=== PATIENT | female | born 1975 | race Hispanic/Latino ===

== ENCOUNTER 2018-01-15 19:38 | Emergency (ER) | payer BC ==
[2018-01-15] MEDS ORDERED: OSELTAMIVIR 75 MG CAP ONE (20:48)
[2018-01-15] MEDS ORDERED: DEXAMETHASONE 4 MG TAB ONE (20:49)
[2018-01-15] MEDS ORDERED: ACETAMINOPHEN 500 MG TAB ONE ×2 (20:49→20:53)
[2018-01-15] MEDS ORDERED: ALBUTEROL 2.5 MG/3 ML NEB SOL ONE (20:49)
--- NOTE | 2018-01-15 20:55 | EDPHYS ---
Physician Documentation [facility] Name: Brian Goldstein Age: 42 yrs Sex: Female : 1975 Arrival Date: 01/15/2018 Time: 19:40 Bed 19 Private MD: ED Physician Sabino Bills HPI: 01/15 20:53 This 42 yrs old Female presents to ER via Ambulatory with complaints of Cough, snw Fever, BODY ACHE. 20:53 The patient or guardian reports cough, flu symptoms, arthralgias, low-grade fever, snw myalgias, no appetite. Onset: The symptoms/episode began/occurred suddenly, last night. Severity of symptoms: At their worst the symptoms were moderate, severe. The patient has not experienced similar symptoms in the past. The patient has not recently seen a physician. visiting from [place]. 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 - Social history:: Smoking status: Patient/guardian denies using tobacco, Patient uses alcohol, occasionally. Patient/guardian denies using street drugs. ROS: 20:52 Eyes: Negative for injury, pain, redness, and discharge. snw 20:52 Neck: Negative for injury, pain, and swelling. 20:52 Cardiovascular: Negative for chest pain, palpitations, and edema. 20:52 Abdomen/GI: Negative for abdominal pain, nausea, vomiting, diarrhea, and constipation, Back: Negative for injury and pain, : Negative for injury, bleeding, discharge, and swelling, MS/Extremity: Negative for injury and deformity, Skin: Negative for injury, rash, and discoloration, Neuro: Negative for headache, weakness, numbness, tingling, and seizure. 20:52 Constitutional: Positive for body aches, chills, fatigue, fever, malaise, poor PO intake. 20:52 ENT: Positive for nasal discharge. 20:52 Respiratory: Positive for cough. Exam: 20:43 Head/Face: Normocephalic, atraumatic. Eyes: Pupils equal round and reactive to light, snw extra-ocular motions intact. Lids and lashes normal. Conjunctiva and sclera are non-icteric and not injected. Cornea within normal limits. Periorbital areas with no swelling, redness, or edema. 20:43 Neck: Trachea midline, no thyromegaly or masses palpated, and no cervical lymphadenopathy. Supple, full range of motion without nuchal rigidity, or vertebral point tenderness. No Meningismus. Chest/axilla: Normal chest wall appearance and motion. Nontender with no deformity. No lesions are appreciated. Respiratory: Lungs have equal breath sounds bilaterally, clear to auscultation and percussion. No rales, rhonchi or wheezes noted. No increased work of breathing, no retractions or nasal flaring. Abdomen/GI: Soft, non-tender, with normal bowel sounds. No distension or tympany. No guarding or rebound. No evidence of tenderness throughout. Back: No spinal tenderness. No costovertebral tenderness. Full range of motion. Skin: Warm, dry with normal turgor. Normal color with no rashes, no lesions, and no evidence of cellulitis. MS/ Extremity: Pulses equal, no cyanosis. Neurovascular intact. Full, normal range of motion. Neuro: Awake and alert, GCS 15, oriented to person, place, time, and situation. Cranial nerves II-XII grossly intact. Motor strength 5/5 in all extremities. Sensory grossly intact. Cerebellar exam normal. Normal gait. Psych: Awake, alert, with orientation to person, place and time. Behavior, mood, and affect are within normal limits. 20:43 Constitutional: The patient appears alert, obviously ill, uncomfortable. 20:43 ENT: TM's: dullness, Nose: nasal drainage, that is clear. 20:43 Cardiovascular: Rate: tachycardic, Rhythm: regular, Pulses: no pulse deficits are appreciated, Heart sounds: normal, Edema: is not appreciated. Vital Signs: 19:48 BP 131 / 121; Pulse 99; Resp 16; Temp 99.3(O); Pulse Ox 97% ; Weight 104.33 kg (R); ao Height 5 ft. 4 in. (162.56 cm) (R); Pain 10/10; 20:32 BP 136 / 85; Pulse 92; Resp 16; Pulse Ox 99% on R/A; mt 20:36 BP 141 / 97; Pulse 102; Resp 16; Pulse Ox 100% on Nebulizer Mask; mt 19:48 Body Mass Index 39.48 (104.33 kg, 162.56 cm) ao MDM: 19:52 Patient medically screened. snw 20:56 Data reviewed: vital signs, nurses notes. Data interpreted: Pulse oximetry: on room air snw is 100 %. Interpretation: normal. Counseling: I had a detailed discussion with the patient and/or guardian regarding: the historical points, exam findings, and any diagnostic results supporting the discharge/admit diagnosis, the presence of at least one elevated blood pressure reading (>120/80) during this emergency department visit, lab results, the need for outpatient follow up, to return to the emergency department if symptoms worsen or persist or if there are any questions or concerns that arise at home. Special discussion: I have referred the patient to see his PCP for further evaluation of high blood pressure. Based on the history and exam findings, there is no indication for further emergent testing or inpatient evaluation. I discussed with the patient/guardian the need to see the primary care provider for further evaluation of the symptoms. 01/15 19:53 Order name: Flu; Complete Time: 20:26 snw 01/15 19:53 Order name: Strep; Complete Time: 20:26 snw 01/15 20:28 Order name: Throat Culture EDMS Administered Medications: 20:40 Drug: Albuterol 2.5 mg Route: Inhalation; aj1 21:04 Follow up: Response: No adverse reaction aj1 20:40 Drug: Decadron 8 mg Route: PO; aj1 21:04 Follow up: Response: No adverse reaction aj1 20:40 Drug: Tylenol 1000 mg Route: PO; aj1 21:05 Follow up: Response: No adverse reaction aj1 20:40 Drug: Tamiflu 75 mg Route: PO; aj1 21:05 Follow up: Response: No adverse reaction aj1 Disposition: 01/16 02:51 Co-signature as Attending Physician, Sabino Bills MD. rn Disposition: 01/15/18 20:54 Discharged to Home. Impression: Influenza due to other identified influenza virus - B. - Condition is Stable. - Discharge Instructions: Hypertension, Influenza, Adult. - Prescriptions for Tamiflu 75 mg Oral Capsule - take 1 capsule by ORAL route every 12 hours for 5 days; 10 capsule. Tylenol- Codeine #3 300-30 mg Oral Tablet - take 2 tablets by ORAL route every 6 hours As needed; 20 tablet. - Medication Reconciliation Form, Thank You Letter, Antibiotic Education, Prescription Opioid Use form. - Follow up: Private Physician; When: 2 - 3 days; Reason: Recheck today's complaints, Continuance of care, Re-evaluation by your physician. Follow up: Emergency Department; When: As needed; Reason: Worsening of condition. Signatures: Dispatcher [employer] EDNesha Marks RN RN aj1 Danielle Hernandez, BACON SKINNER-C BACON SKINNER-Csnw Sabino Bills MD MD rn Liborio Capellan RN RN neo
--- NOTE | 2018-01-15 20:55 | ER ---
Nurse's Notes [facility] Name: Brian Goldstein Age: 42 yrs Sex: Female : 1975 Arrival Date: 01/15/2018 Time: 19:40 Bed 19 Private MD: Diagnosis: Influenza due to other identified influenza virus-B Presentation: 01/15 19:43 Presenting complaint: Patient states: "I been coughing and I also having neck and back ao pain. I also have a sore throat." Patient reports chills and denies nausea and vomiting. Transition of care: patient was not received from another setting of care. Onset of symptoms was January 15, 2018 at 16:00. Care prior to arrival: Medication(s) given: Tylenol, 1000 mg. 19:43 Method Of Arrival: Ambulatory ao 19:43 Acuity: SOFIA 3 ao Triage Assessment: 19:49 General: Appears in no apparent distress. comfortable, Behavior is calm, cooperative, ao appropriate for age. Pain: Complains of pain in neck. 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 - Social history:: Smoking status: Patient/guardian denies using tobacco, Patient uses alcohol, occasionally. Patient/guardian denies using street drugs. Screenin:00 Abuse screen: Denies threats or abuse. Denies injuries from another. Nutritional aj1 screening: No deficits noted. Tuberculosis screening: No symptoms or risk factors identified. 21:02 Fall Risk None identified. aj1 Assessment: 20:00 General: Appears in no apparent distress. uncomfortable, Behavior is calm, cooperative, aj1 appropriate for age, Reports "I was running fever, I dont know the number she (the person the patient is staying with) just gave me Tylenol because I was shaking". Pain: Complains of pain in face, scalp, back and neck Pain does not radiate. Pain currently is 10 out of 10 on a pain scale. Quality of pain is described as pressure Pain began 3 weeks ago. Neuro: Level of Consciousness is awake, alert, obeys commands, Oriented to person, place, time, situation, Speech is normal, Facial symmetry appears normal. Cardiovascular: Heart tones S1 S2 present Patient's skin is warm and dry. Respiratory: Reports shortness of breath cough that is productive, Airway is patent Respiratory effort is even, unlabored, Respiratory pattern is regular, symmetrical, Breath sounds are clear bilaterally. GI: No signs and/or symptoms were reported involving the gastrointestinal system. Patient currently denies diarrhea, nausea, vomiting. : No signs and/or symptoms were reported regarding the genitourinary system. EENT: No signs and/or symptoms were reported regarding the EENT system. Derm: No signs and/or symptoms reported regarding the dermatologic system. Skin is pink, warm \\T\\ dry. normal. Musculoskeletal: No signs and/or symptoms reported regarding the musculoskeletal system. Circulation, motion, and sensation intact. 21:02 Reassessment: Patient appears in no apparent distress at this time. No changes from aj1 previously documented assessment. Patient and/or family updated on plan of care and expected duration. Pain level reassessed. Patient is alert, oriented x 3, equal unlabored respirations, skin warm/dry/pink. Vital Signs: 19:48 BP 131 / 121; Pulse 99; Resp 16; Temp 99.3(O); Pulse Ox 97% ; Weight 104.33 kg (R); ao Height 5 ft. 4 in. (162.56 cm) (R); Pain 10/10; 20:32 BP 136 / 85; Pulse 92; Resp 16; Pulse Ox 99% on R/A; mt 20:36 BP 141 / 97; Pulse 102; Resp 16; Pulse Ox 100% on Nebulizer Mask; mt 19:48 Body Mass Index 39.48 (104.33 kg, 162.56 cm) ao ED Course: 19:40 Patient arrived in ED. es 19:46 Danielle Hernandez FNP-C is [facility]. snw 19:46 Sabino Bills MD is Attending Physician. snw 19:46 Triage completed. ao 19:50 Arm band placed on right wrist. Patient placed in an exam room, on a stretcher, on ao pulse oximetry, Patient notified of wait time. 19:51 Nesha Low RN is Primary Nurse. aj1 20:00 Patient has correct armband on for positive identification. aj1 20:00 No provider procedures requiring assistance completed. aj1 21:03 Patient did not have IV access during this emergency room visit. aj1 Administered Medications: 20:40 Drug: Albuterol 2.5 mg Route: Inhalation; aj1 21:04 Follow up: Response: No adverse reaction aj1 20:40 Drug: Decadron 8 mg Route: PO; aj1 21:04 Follow up: Response: No adverse reaction aj1 20:40 Drug: Tylenol 1000 mg Route: PO; aj1 21:05 Follow up: Response: No adverse reaction aj1 20:40 Drug: Tamiflu 75 mg Route: PO; aj1 21:05 Follow up: Response: No adverse reaction aj1 Outcome: 20:54 Discharge ordered by . kyle : Discharged to home ambulatory. aj1 21:03 Condition: good 21:03 Discharge instructions given to patient, Instructed on discharge instructions, follow up and referral plans. no drinking with medication, no driving heavy equipment, medication usage, Demonstrated understanding of instructions, follow-up care, medications, Prescriptions given X 2. 21:04 Patient left the ED. aj1 Signatures: Nesha Low, RN RN aj1 Danielle Hernandez, CRIMINAL COURT JUDGE-C CRIMINAL COURT JUDGE-Csnw Rain Cosby Alex, RN MILTON [facility]
== END 2018-01-15 21:04 | disposition home or self-care (01) ==
LOC: ER 19:38
DX: J10.1 Influenza due to other identified influenza virus with other respiratory manifestations (principal)
CPT/HCPCS: 87070; 87081; 87804; 99284

== ENCOUNTER 2018-01-17 11:02 | Emergency (ER) | payer BC ==
[2018-01-17 12:28] LABS: Absolute Lymphocytes (CBC) 0.7 K/uL (0.7-4.9); Absolute Monocytes 0.5 K/uL (0.1-1.3); Absolute Neutrophil 2.8 K/uL (1.8-8.0); Basophils % 0.6 % (0-1.3); Eosinophils % 0.1 % (0-4.4); Hematocrit 39.6 % (36.0-45.0); Lymphocytes % 16.7 % (15.3-44.8); MCH 29.6 pg (27.0-35.0); MCV 87.1 fL (80-100); MPV 8.7 fL (7.6-11.3); RBC Red Blood Cell Count 4.55 M/uL (3.86-4.86)
[2018-01-17] MEDS ORDERED: NA CHLORIDE 0.9% 1,000 ML ONE (12:29)
[2018-01-17] MEDS ORDERED: ONDANSETRON 4 MG/2 ML VIAL ONE (12:29)
[2018-01-17] MEDS ORDERED: DICYCLOMINE HCL 10 MG CAP ONE (12:29)
[2018-01-17 12:43] LABS: Potassium 3.2 mEq/L (3.6-5.0)
[2018-01-17 12:49] LABS: Albumin 4.4 g/dL (3.2-5.5); Bilirubin Direct 0.1 mg/dL (0-0.2); Bilirubin Total 0.6 mg/dL (0.3-1.2)
[2018-01-17] MEDS ORDERED: KETOROLAC 30 MG/ML INJ ONE (13:34)
[2018-01-17] MEDS ORDERED: POTASSIUM 25 MEQ EFFERV TAB ONE (13:34)
[2018-01-17 14:19] LABS: Urine Blood 2+ (NEG); Urine Glucose NEGATIVE (NEG); Urine Protein NEGATIVE (NEG); Urine pH 5.5 (5.0-7.0)
--- NOTE | 2018-01-17 14:21 | ER ---
Nurse's Notes [facility] Name: Brian Goldstein Age: 42 yrs Sex: Female : 1975 Arrival Date: 01/17/2018 Time: 11:05 Bed 8 Private MD: Diagnosis: Influenza due to certain identified influenza viruses;Vomiting Presentation: 01/17 11:17 Presenting complaint: Patient states: N/V and diffuse abdominal pain x 2 days. Also c/o hb left upper chest pain since last night. Recently seen in ED, on [place] Day 2 for flu. Transition of care: patient was not received from another setting of care. Onset of symptoms is unknown. Care prior to arrival: None. 11:17 Method Of Arrival: Wheelchair hb 11:17 Acuity: SOFIA 3 hb Triage Assessment: 14:34 General: Appears in no apparent distress. Behavior is calm, cooperative. GI: Reports la1 lower abdominal pain, upper abdominal pain. 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 - Social history:: Smoking status: Patient/guardian denies using tobacco. Screenin:31 Abuse screen: Denies threats or abuse. Nutritional screening: No deficits noted. la1 Tuberculosis screening: No symptoms or risk factors identified. Fall Risk None identified. Assessment: 11:30 General: Appears uncomfortable, Behavior is calm, cooperative. Pain: Complains of pain la1 in chest and abdomen. Neuro: Level of Consciousness is awake, alert, obeys commands, Oriented to person, place, time, situation. Cardiovascular: Capillary refill < 3 seconds Patient's skin is warm and dry. Respiratory: Airway is patent Respiratory effort is even, unlabored, Respiratory pattern is regular, symmetrical, Breath sounds are clear bilaterally. GI: Abdomen is round Bowel sounds present X 4 quads. Abd is soft X 4 quads Abdomen is tender to palpation in right upper quadrant, left upper quadrant, right lower quadrant and left lower quadrant. : No signs and/or symptoms were reported regarding the genitourinary system. Vital Signs: 11:19 BP 119 / 74; Pulse 97; Resp 16; Temp 99.4; Pulse Ox 98% on R/A; Weight 102.51 kg; hb Height 5 ft. 4 in. (162.56 cm); Pain 10/10; 14:18 BP 115 / 64; Pulse 74; Resp 16; Temp 98.3(O); Pulse Ox 99% on R/A; la1 14:33 BP 115 / 61; Pulse 76; Resp 16; Pulse Ox 100% on R/A; la1 11:19 Body Mass Index 38.79 (102.51 kg, 162.56 cm) hb ED Course: 11:05 Patient arrived in ED. mr 11:19 Triage completed. hb 11:21 Arm band placed on right wrist. hb 11:28 Dannie Tillman, MILTON is Primary Nurse. la1 11:31 Placed in gown. Bed in low position. Call light in reach. Pulse ox on. NIBP on. la1 11:38 Homero Zamora NP is PHCP. pm1 11:38 Pee Rogers MD is Attending Physician. pm1 11:39 Inserted saline lock: 20 gauge in left antecubital area, using aseptic technique. Blood la1 collected. 14:34 No provider procedures requiring assistance completed. IV discontinued, intact, la1 bleeding controlled, No redness/swelling at site. Pressure dressing applied. Administered Medications: 12:16 Drug: NS 0.9% 1000 ml Route: IV; Rate: 1000 ml; Site: left antecubital; la1 14:13 Follow up: IV Status: Completed infusion la1 12:16 Drug: Zofran 4 mg Route: IVP; Site: left antecubital; la1 14:13 Follow up: Response: No adverse reaction la1 12:16 Drug: Bentyl 20 mg Route: PO; la1 14:12 Follow up: Response: No adverse reaction la1 13:20 Drug: TORadol 30 mg Route: IVP; Site: left antecubital; la1 14:12 Follow up: Response: No adverse reaction; Pain is decreased la1 13:20 Drug: Potassium Effervescent Tablet 50 mEq Route: PO; la1 14:12 Follow up: Response: No adverse reaction la1 Outcome: 14:20 Discharge ordered by . pm1 14:34 Discharged to home ambulatory. la1 14:34 Condition: stable 14:34 Discharge instructions given to patient, Instructed on discharge instructions, follow up and referral plans. medication usage, Demonstrated understanding of instructions, follow-up care, medications, Prescriptions given X 3. 14:34 Patient left the ED. la1 Signatures: Sri Pedersen Lee RN RN la1 Homero Zamora, RULING TECHNICIAN RULING TECHNICIAN pm1 Magda Hoyos RN RN hb
--- NOTE | 2018-01-17 14:21 | EDPHYS ---
Physician Documentation [facility] Name: Brian Goldstein Age: 42 yrs Sex: Female : 1975 Arrival Date: 01/17/2018 Time: 11:05 Bed 8 Private MD: ED Physician Pee Rogers HPI: 01/17 14:00 This 42 yrs old Female presents to ER via Wheelchair with complaints of pm1 Vomiting. 14:00 The patient presents to the emergency department with nausea, vomiting, abdominal pain, pm1 described as crampy, and does not radiate. Onset: The symptoms/episode began/occurred this morning. Possible causes: unknown. The symptoms are aggravated by food , The symptoms are alleviated by nothing. Associated signs and symptoms: Pertinent positives: abdominal pain, nausea, vomiting, Pertinent negatives: constipation, diarrhea, dysuria, fever. Severity of symptoms: in the emergency department the symptoms are unchanged. The patient has been recently seen by a physician: The patient has been recently seen at the [facility] Emergency Department, Patient diagnosed with flu B two days ago and prescribed Tamiflu . 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 - Social history:: Smoking status: Patient/guardian denies using tobacco. ROS: 14:00 Eyes: Negative for injury, pain, redness, and discharge, ENT: Negative for injury, pm1 pain, and discharge, Neck: Negative for injury, pain, and swelling, Cardiovascular: Negative for chest pain, palpitations, and edema. 14:00 Respiratory: Negative for shortness of breath, cough, wheezing, and pleuritic chest pain. 14:00 Back: Negative for injury and pain, : Negative for injury, bleeding, discharge, and swelling, MS/Extremity: Negative for injury and deformity, Skin: Negative for injury, rash, and discoloration, Neuro: Negative for headache, weakness, numbness, tingling, and seizure. 14:00 Constitutional: Positive for body aches. 14:00 Abdomen/GI: Positive for nausea and vomiting, abdominal cramps, Negative for diarrhea. Exam: 14:00 Constitutional: This is a well developed, well nourished patient who is awake, alert, pm1 and in no acute distress. Head/Face: Normocephalic, atraumatic. Eyes: Pupils equal round and reactive to light, extra-ocular motions intact. Lids and lashes normal. Conjunctiva and sclera are non-icteric and not injected. Cornea within normal limits. Periorbital areas with no swelling, redness, or edema. ENT: Nares patent. No nasal discharge, no septal abnormalities noted. Tympanic membranes are normal and external auditory canals are clear. Oropharynx with no redness, swelling, or masses, exudates, or evidence of obstruction, uvula midline. Mucous membranes moist. Neck: Trachea midline, no thyromegaly or masses palpated, and no cervical lymphadenopathy. Supple, full range of motion without nuchal rigidity, or vertebral point tenderness. No Meningismus. Chest/axilla: Normal chest wall appearance and motion. Nontender with no deformity. No lesions are appreciated. Cardiovascular: Regular rate and rhythm with a normal S1 and S2. No gallops, murmurs, or rubs. No pulse deficits. Respiratory: Lungs have equal breath sounds bilaterally, clear to auscultation and percussion. No rales, rhonchi or wheezes noted. No increased work of breathing, no retractions or nasal flaring. Abdomen/GI: Soft, non-tender, with normal bowel sounds. No distension or tympany. No guarding or rebound. No evidence of tenderness throughout. Back: No spinal tenderness. No costovertebral tenderness. Full range of motion. Skin: Warm, dry with normal turgor. Normal color with no rashes, no lesions, and no evidence of cellulitis. MS/ Extremity: Pulses equal, no cyanosis. Neurovascular intact. Full, normal range of motion. 14:00 Neuro: Orientation: is normal, Cerebellar function: normal finger to nose testing, Motor: moves all fours, strength is normal, strength is 5/5 in all extremities, Sensation: is normal, no obvious gross deficits. Vital Signs: 11:19 BP 119 / 74; Pulse 97; Resp 16; Temp 99.4; Pulse Ox 98% on R/A; Weight 102.51 kg; hb Height 5 ft. 4 in. (162.56 cm); Pain 10/10; 14:18 BP 115 / 64; Pulse 74; Resp 16; Temp 98.3(O); Pulse Ox 99% on R/A; la1 14:33 BP 115 / 61; Pulse 76; Resp 16; Pulse Ox 100% on R/A; la1 11:19 Body Mass Index 38.79 (102.51 kg, 162.56 cm) hb MDM: 11:39 Patient medically screened. pm1 14:00 ED course: patient with possible side effects of Tamiflu with abdominal cramping and pm1 vomiting or gastroenteritis. 14:19 Data reviewed: vital signs. Data interpreted: Pulse oximetry: on room air is 99 %. pm1 Interpretation: normal. Counseling: I had a detailed discussion with the patient and/or guardian regarding: the historical points, exam findings, and any diagnostic results supporting the discharge/admit diagnosis, lab results, the need for outpatient follow up, to return to the emergency department if symptoms worsen or persist or if there are any questions or concerns that arise at home. 01/17 12:09 Order name: Basic Metabolic Panel; Complete Time: 13:01 pm1 01/17 12:09 Order name: CBC with Diff; Complete Time: 13: pm1 01/17 12:09 Order name: Hepatic Function; Complete Time: 13: pm1 01/17 12:09 Order name: Lipase; Complete Time: 13: pm1 01/17 13:34 Order name: Urine Dipstick--Ancillary (enter results); Complete Time: 14:21 ag 01/17 13:34 Order name: Urine --Ancillary (enter results); Complete Time: 14:21 ag 01/17 12:09 Order name: IV Saline Lock; Complete Time: 12:16 pm1 01/17 12:09 Order name: Labs collected and sent; Complete Time: 12:16 pm1 01/17 12:09 Order name: Urine Dipstick-Ancillary (obtain specimen); Complete Time: 13:12 pm1 Administered Medications: 12:16 Drug: NS 0.9% 1000 ml Route: IV; Rate: 1000 ml; Site: left antecubital; la1 14:13 Follow up: IV Status: Completed infusion la1 12:16 Drug: Zofran 4 mg Route: IVP; Site: left antecubital; la1 14:13 Follow up: Response: No adverse reaction la1 12:16 Drug: Bentyl 20 mg Route: PO; la1 14:12 Follow up: Response: No adverse reaction la1 13:20 Drug: TORadol 30 mg Route: IVP; Site: left antecubital; la1 14:12 Follow up: Response: No adverse reaction; Pain is decreased la1 13:20 Drug: Potassium Effervescent Tablet 50 mEq Route: PO; la1 14:12 Follow up: Response: No adverse reaction la1 Disposition: 15:26 Co-signature as Attending Physician, Pee Rogers MD I agree with the assessment and kdr plan of care. Disposition: 01/17/18 14:20 Discharged to Home. Impression: Influenza due to certain identified influenza viruses, Vomiting. - Condition is Stable. - Discharge Instructions: Influenza, Adult, Nausea and Vomiting. - Prescriptions for Zofran 4 mg Oral Tablet - take 1 tablet by ORAL route every 12 hours As needed; 20 tablet. promethazine 25 mg Oral Tablet - take 1 tablet by ORAL route every 6 hours As needed; 20 tablet. Bentyl 20 mg Oral Tablet - take 1 tablet by ORAL route every 6 hours As needed; 20 tablet. - Medication Reconciliation Form, Thank You Letter form. - Follow up: Emergency Department; When: As needed; Reason: Worsening of condition. Follow up: Private Physician; When: 2 - 3 days; Reason: Recheck today's complaints, Continuance of care, Re-evaluation by your physician. - Problem is new. - Symptoms have improved. Signatures: Dispatcher [employer] EDAK Pee Rogers MD MD [facility] Dannie Tillman RN RN la1 Homero Zamora NP ASSISTANT BRANCH OPERATIONS MANAGER pm1 Magda Hoyos RN RN
== END 2018-01-17 14:34 | disposition home or self-care (01) ==
LOC: ER 11:02
DX: J10.1 Influenza due to other identified influenza virus with other respiratory manifestations (principal)
CPT/HCPCS: 36415; 80048; 80076; 81003; 81025; 83690; 85025; 96361; 96374; 96375; 99284; J2405; J7030

== ENCOUNTER → 2023-12-18 | Emergency (ER) | payer BC, SELFPAY ==
[2023-12-18 09:12] LABS: SARS-CoV-2 Antigen Rapid Res Positive (Negative)
--- NOTE | 2023-12-18 10:01 | RAD REPORT ---
EXAM DESCRIPTION: RAD - Chest Single View - 12/18/2023 9:47 am CLINICAL HISTORY: COUGH COMPARISON: No comparisons FINDINGS: Lines: None. Lungs: No evidence of edema or pneumonia. Pleural: No significant pleural effusions or pneumothorax. Cardiac: The heart size is within normal limits. Mediastinum: Within normal limits. Bones: No acute fractures. Other: None IMPRESSION: No acute cardiopulmonary disease.
--- NOTE | 2023-12-18 10:25 | EDPHYS ---
Physician Documentation [facility] Name: Courtney Torres Age: 48 yrs Sex: Female : 1975 Arrival Date: 12/18/2023 Time: 08:03 Bed 10 Private MD: ED Physician Sbaino Bills HPI: 12/18 09:32 This 48 yrs old Female presents to ER via Ambulatory with complaints of Flu rn Symptoms. 09:32 The patient or guardian reports cough, flu symptoms, low-grade fever, myalgias, no rn appetite. Onset: The symptoms/episode began/occurred 1 week(s) ago. Severity of symptoms: At their worst the symptoms were mild, in the emergency department the symptoms are unchanged. Modifying factors: The symptoms are alleviated by nothing, the symptoms are aggravated by nothing. The patient has not experienced similar symptoms in the past. Patient reports 1 week of flulike symptoms. Subjective fever earlier on in the illness but no longer febrile. Patient reports nasal congestion and sore throat. Associated with myalgias and decreased appetite. No known sick contacts. No shortness of breath.. 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 - Social history:: Smoking status: Patient denies any tobacco usage or history of. - Family history:: not pertinent. - Hospitalizations: : No recent hospitalization is reported. ROS: 09:32 Constitutional: Negative for fever, chills, and weight loss, Eyes: Negative for injury, rn pain, redness, and discharge, ENT: Positive for congestion and sore throat Cardiovascular: Negative for chest pain, palpitations, and edema, Respiratory: Positive for cough, negative for shortness of breath Abdomen/GI: Negative for abdominal pain, nausea, vomiting, diarrhea, and constipation, MS/Extremity: Negative for injury and deformity, Skin: Negative for injury, rash, and discoloration, Neuro: Positive for headache and generalized weakness Exam: 09:32 Constitutional: This is a well developed, well nourished patient who is awake, alert, rn and in no acute distress. Head/Face: Normocephalic, atraumatic. ENT: Mild pharyngeal erythema, no exudate. Neck: No meningismus. Bilateral cervical lymphadenopathy present Cardiovascular: Regular rate and rhythm. No pulse deficits. Respiratory: No increased work of breathing, no retractions or nasal flaring. Vital Signs: 08:15 BP 166 / 90; Pulse 87; Resp 18; Temp 98.5; Pulse Ox 100% ; Weight 90.72 kg; Height 5 ll1 ft. 4 in. ; Pain 9/10; 10:40 BP 148 / 82; Pulse 79; Resp 17; Pulse Ox 100% ; ll1 08:15 Body Mass Index 34.33 (90.72 kg, 162.56 cm) ll1 08:15 Pain Scale: Adult ll1 MDM: 08:07 Patient medically screened. rn 09:32 Differential Diagnosis: Influenza Upper Respiratory Infection Viral Syndrome. Data rn reviewed: vital signs, nurses notes, lab test result(s). 10:24 Counseling: I had a detailed discussion with the patient and/or guardian regarding the rn historical points, exam findings, and any diagnostic results supporting the discharge/admit diagnosis, lab results, radiology results, the need for outpatient follow up, to return to the emergency department if symptoms worsen or persist or if there are any questions or concerns that arise at home. Special discussion: I discussed with the patient/guardian in detail that at this point there is no indication for admission to the hospital. It is understood, however, that if the symptoms persist or worsen the patient needs to return immediately for re-evaluation. 12/18 08:25 Order name: Flu; Complete Time: 09: [facility] 12/18 08:25 Order name: Strep 1 12/18 08:25 Order name: SARS RAPID; Complete Time: : 1 12/18 09:16 Order name: Throat Culture [facility] 12/18 09:10 Order name: XRAY Chest (1 view); Complete Time: 10:16 rn Administered Medications: No medications were administered Disposition Summary: 12/18/23 10:24 Discharge Ordered Notes: Location: Home rn Problem: new rn Symptoms: have improved rn Condition: Stable rn Diagnosis - SARS-associated coronavirus as the cause of diseases classified elsewhere rn Followup: rn - With: Private Physician - When: As needed - Reason: Recheck today's complaints, Re-evaluation by your physician Discharge Instructions: - Discharge Summary Sheet rn - COVID-19 rn - 10 Things You Can Do to Manage Your COVID-19 Symptoms at Home - [facility] (05/05/2021) rn - Viral Illness, Adult rn Forms: - Medication Reconciliation Form rn - Thank You Letter rn - Antibiotic turn laster - Prescription Opioid Use rn - Patient Portal Instructions rn - Leadership Thank You Letter rn - Work release form ll1 Signatures: Dispatcher [employer] EDSabino Christensen MD MD rn Lewis, Lynsay, RN RN 1
--- NOTE | 2023-12-18 10:25 | ER ---
Nurse's Notes [facility] Name: Courtney Torres Age: 48 yrs Sex: Female : 1975 Arrival Date: 12/18/2023 Time: 08:03 Bed 10 Private MD: Diagnosis: SARS-associated coronavirus as the cause of diseases classified elsewhere Presentation: 12/18 08:15 Chief complaint: Patient states: Cough, congestion, chills, body aches off/on for 1 ll1 week. No fever but has chills. Coronavirus screen: Vaccine status: Patient reports receiving the 2nd dose of the covid vaccine. Client denies travel out of the [place] in the last 14 days. chills, congestion, cough unrelated to allergies, fatigue, headache, muscle pain, nausea, sore throat, Client presents with at least one sign or symptom that may indicate coronavirus-19. Standard/surgical mask placed on the client. Ebola Screen: Patient denies travel to an Ebola-affected area in the 21 days before illness onset. Initial Sepsis Screen: Does the patient meet any 2 criteria? No. Patient's initial sepsis screen is negative. Does the patient have a suspected source of infection? No. Patient's initial sepsis screen is negative. Risk Assessment: Do you want to hurt yourself or someone else? Patient reports no desire to harm self or others. Onset of symptoms was December 11, 2023. 08:15 Method Of Arrival: Ambulatory ll1 08:15 Acuity: SOFIA 4 ll1 Triage Assessment: 10:41 General: Appears in no apparent distress. Behavior is calm, cooperative, appropriate ll1 for age. 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 - Social history:: Smoking status: Patient denies any tobacco usage or history of. - Family history:: not pertinent. - Hospitalizations: : No recent hospitalization is reported. Screenin:41 [facility] ED Fall Risk Assessment (Adult) Score/Fall Risk Level 0 - 2 = Low Risk ll1 Oriented to surroundings, Maintained a safe environment, Educated pt \T\ family on fall prevention, incl call for assistance when getting out of bed, Hourly rounding (assess needs \T\ fall precautionary measures) done. Abuse screen: Denies threats or abuse. Nutritional screening: No deficits noted. Tuberculosis screening: No symptoms or risk factors identified. Assessment: 08:28 General: Appears uncomfortable, ill, Behavior is calm, cooperative, appropriate for ll1 age. General: Reports chills for feeling ill for fatigue for. Pain: Complains of pain in head Quality of pain is described as aching. Respiratory: Reports cough that is. GI: Reports nausea. EENT: Reports nasal congestion. 10:40 Reassessment: No changes from previously documented assessment. Patient and/or family ll1 updated on plan of care and expected duration. Pain level reassessed. Patient is alert, oriented x 3, equal unlabored respirations, skin warm/dry/pink. Vital Signs: 08:15 BP 166 / 90; Pulse 87; Resp 18; Temp 98.5; Pulse Ox 100% ; Weight 90.72 kg; Height 5 ll1 ft. 4 in. ; Pain 9/10; 10:40 BP 148 / 82; Pulse 79; Resp 17; Pulse Ox 100% ; ll1 08:15 Body Mass Index 34.33 (90.72 kg, 162.56 cm) ll1 08:15 Pain Scale: Adult ll1 ED Course: 08:04 Patient arrived in ED. rg4 08:07 Sabino Bills MD is Attending Physician. rn 08:15 Arm band placed on. ll1 08:17 Triage completed. ll1 08:25 Celeste Ornelas, RN is Primary Nurse. ll1 08:28 Flu Sent. ll1 08:28 Strep Sent. ll1 08:28 SARS RAPID Sent. ll1 08:30 Patient has correct armband on for positive identification. Bed in low position. Call ll1 light in reach. Provided Education on: ER procedures and process. 09:13 Notified ED physician of a critical lab result(s). covid +. ll1 09:49 XRAY Chest (1 view) In Process Unspecified. EDMS 10:41 No provider procedures requiring assistance completed. Patient did not have IV access ll1 during this emergency room visit. Administered Medications: No medications were administered Medication: 12:20 VIS not applicable for this client. ll1 Outcome: 10:24 Discharge ordered by . rn 10:41 Patient left the ED. bc6 10:41 Discharged to home ambulatory, ll1 10:41 Condition: stable 10:41 Discharge instructions given to patient, Instructed on discharge instructions, follow up and referral plans. Demonstrated understanding of instructions, follow-up care, Signatures: Dispatcher [employer] EDSabino Christensen MD MD rn Garcia, Rubi 4 Celeste Ornelas RN RN 1 Lori Hall [facility]
[2023-12-18 11:00] VITALS: BP 166/90; TEMP 98.5; O2SAT 100
== END ==
LOC: ER 08:03
DX: U07.1 COVID-19 (principal)
CPT/HCPCS: 36415; 71045; 87070; 87081; 87804; 87811

== ENCOUNTER → 2024-01-07 | Emergency (ER) | payer SELFPAY ==
[~2024-01-07] MED LIST: HYDROCODONE/APAP 7.5/325 MG TAB ONE
--- NOTE | 2024-01-07 20:46 | RAD REPORT ---
EXAM DESCRIPTION: RAD - Knee Right 3 View - 01/07/2024 8:40 pm CLINICAL HISTORY: PAIN COMPARISON: No comparisons FINDINGS: [id number] tricompartmental osteoarthritis is present. No fracture, dislocation or j oint effusion.
--- NOTE | 2024-01-07 20:47 | RAD REPORT ---
EXAM DESCRIPTION: RAD - Sacrum And Coccyx - 01/07/2024 8:40 pm CLINICAL HISTORY: PAIN COMPARISON: No comparisons FINDINGS: Symmetric sacroiliac joints are present. No fracture or subluxation is seen.
--- NOTE | 2024-01-07 21:03 | EDPHYS ---
Physician Documentation [facility] Name: Courtney Torres Age: 48 yrs Sex: Female : 1975 Arrival Date: 01/07/2024 Time: 18:41 Bed DX1 Private MD: ED Physician Robert Huizar HPI: 01/06 21:01 This 48 yrs old Female presents to ER via Ambulatory with complaints of Low kb Back Pain, Knee Injury. 21:01 Patient is a 48-year-old female who fell 2 weeks ago while cleaning a bathroom and kb landed on buttocks. Complains of pain to tailbone and right knee that has not gotten any better. Ambulates with steady gait. Denies any other injuries. Denies numbness or tingling. Denies urinary symptoms.. Historical: - Allergies: 19:19 No Known Allergies; ap3 - PMHx: 19:19 Knee problems; ap3 - Immunization history:: Client reports receiving the 2nd dose of the Covid vaccine. - Social history:: Smoking status: Patient denies any tobacco usage or history of. ROS: 20:59 Constitutional: As per HPI kb Exam: 20:59 Constitutional: This is a well developed, well nourished patient who is awake, alert, kb and in no acute distress. Head/Face: Normocephalic, atraumatic. ENT: Moist Mucous membranes Cardiovascular: Regular rate Respiratory: Respirations even and unlabored. No increased work of breathing. Talking in full sentences Abdomen/GI: Soft, non-tender. No distention Skin: Warm, dry with normal turgor. Normal color. Neuro: Awake and alert, GCS 15, oriented to person, place, time, and situation. Moves all extremities. Normal gait. 20:59 Back: pain, that is moderate, of the sacrum, ROM is painful, 20:59 Musculoskeletal/extremity: Extremities: grossly normal except: noted in the right knee: pain, tenderness, ROM: intact in all extremities, Circulation is intact in all extremities. Sensation intact. Weight bearing: able to fully bear weight, Vital Signs: 19:18 Pulse 90; Resp 17; Temp 98.5; Pulse Ox 100% ; Weight 95.25 kg; Height 5 ft. 4 in. ; ap3 Pain 10/10; 19:18 Body Mass Index 36.05 (95.25 kg, 162.56 cm) ap3 19:18 Pain Scale: Adult ap3 MDM: 18:47 Patient medically screened. kb 20:59 Differential diagnosis: arthritis, strain, fracture, contusion, Herniated disc. Data kb reviewed: vital signs, nurses notes. Counseling: I had a detailed discussion with the patient and/or guardian regarding the historical points, exam findings, and any diagnostic results supporting the discharge/admit diagnosis, radiology results, the need for outpatient follow up, a family practitioner, to return to the emergency department if symptoms worsen or persist or if there are any questions or concerns that arise at home. 01/06 19:18 Order name: Sacrum And Coccyx XRAY; Complete Time: 20:52 kb 01/06 19:18 Order name: Knee Right 3 View XRAY; Complete Time: 20:47 kb Administered Medications: 21:05 Drug: Hydrocodone-Acetaminophen PO (7.5 mg-325 mg) 1 tabs PO once Route: PO; pf1 Disposition Summary: 01/07/24 21:02 Discharge Ordered Notes: Location: Home kb Condition: Stable kb Diagnosis - Low back pain kb - Pain in right knee kb Followup: kb - With: Emergency Department - When: As needed - Reason: Worsening of condition Followup: kb - With: Private Physician - When: 2 - 3 days - Reason: Recheck today's complaints, Continuance of care, Re-evaluation by your physician Discharge Instructions: - Discharge Summary Sheet kb - Musculoskeletal Pain kb Forms: - Medication Reconciliation Form kb - Thank You Letter kb - Antibiotic Education kb - Prescription Opioid Use kb - Patient Portal Instructions kb - Leadership Thank You Letter kb Prescriptions: - Diclofenac Sodium 75 mg Oral tablet, delayed release (enteric coated) - take 1 tablet ORAL route 2 times per day As needed; 30 tablet; Refills: 0, kb Product Selection Permitted - orphenadrine citrate 100 mg Oral Tablet Sustained Release - take 1 tablet ORAL route 2 times per day As needed; 20 tablet; Refills: 0, kb Product Selection Permitted Signatures: Dispatcher [employer] Olivia Collado FNP-C FNP-Ckb Prokisch, Amanda, RN RN ap3 Carolina David RN RN pf1
--- NOTE | 2024-01-07 21:03 | ER ---
Nurse's Notes [facility] Name: Courtney Torres Age: 48 yrs Sex: Female : 1975 Arrival Date: 01/07/2024 Time: 18:41 Bed DX1 Private MD: Diagnosis: Low back pain;Pain in right knee Presentation: 01/06 19:18 Chief complaint: Patient states: she fell when cleaning a shower 2 weeks ago and is ap3 having right knee pain and low back pain. patient rates her pain as a 10/10 on the pain scale at this time. Coronavirus screen: At this time, the client does not indicate any symptoms associated with coronavirus-19. Ebola Screen: No symptoms or risks identified at this time. Initial Sepsis Screen: Does the patient meet any 2 criteria? No. Patient's initial sepsis screen is negative. Does the patient have a suspected source of infection? No. Patient's initial sepsis screen is negative. Risk Assessment: Do you want to hurt yourself or someone else? Patient reports no desire to harm self or others. Onset of symptoms was December 24, 2023. 19:18 Method Of Arrival: Ambulatory ap3 19:18 Acuity: SOFIA 4 ap3 Triage Assessment: 19:19 General: Appears in no apparent distress. Behavior is calm, cooperative, appropriate ap3 for age. Pain: Complains of pain in back and right knee. Neuro: Level of Consciousness is awake, alert, obeys commands, Oriented to person, place, time, situation, Appropriate for age. Cardiovascular: Patient's skin is warm and dry. Respiratory: Airway is patent Respiratory effort is even, unlabored, Respiratory pattern is regular, symmetrical. Musculoskeletal: Reports pain in back and right knee. Historical: - Allergies: 19:19 No Known Allergies; ap3 - PMHx: 19:19 Knee problems; ap3 - Immunization history:: Client reports receiving the 2nd dose of the Covid vaccine. - Social history:: Smoking status: Patient denies any tobacco usage or history of. Screenin:19 Abuse screen: Denies threats or abuse. Nutritional screening: No deficits noted. ap3 Tuberculosis screening: No symptoms or risk factors identified. Vital Signs: 19:18 Pulse 90; Resp 17; Temp 98.5; Pulse Ox 100% ; Weight 95.25 kg; Height 5 ft. 4 in. ; ap3 Pain 10/10; 19:18 Body Mass Index 36.05 (95.25 kg, 162.56 cm) ap3 19:18 Pain Scale: Adult ap3 ED Course: 18:44 Patient arrived in ED. ra3 18:46 Olivia Nichole FNP-C is [facility]. kb 18:46 Robert Huizar MD is Attending Physician. kb 19:19 Triage completed. ap3 19:19 Arm band placed on right wrist. ap3 20:41 Sacrum And Coccyx XRAY In Process Unspecified. EDMS 20:41 Knee Right 3 View XRAY In Process Unspecified. EDMS 21:22 Provided Education on: prescriptions. pf1 21:22 No provider procedures requiring assistance completed. Patient did not have IV access pf1 during this emergency room visit. Administered Medications: 21:05 Drug: Hydrocodone-Acetaminophen PO (7.5 mg-325 mg) 1 tabs PO once Route: PO; pf1 Medication: 21:22 VIS not applicable for this client. pf1 Outcome: 21:02 Discharge ordered by . kb 21:22 Discharged to home ambulatory, with family, pf1 21:22 Condition: improved 21:22 Discharge instructions given to patient, Instructed on discharge instructions, follow up and referral plans. Demonstrated understanding of instructions, follow-up care, medications, Prescriptions given X 2, 21:23 Patient left the ED. pf1 Signatures: Dispatcher [employer] EDWV Olivia Nichole FNP-C FNP-Ckb Prokisch, Amanda, RN RN ap3 Carolina David RN RN pf1 Alicia Grimes ra3
[2024-01-07 22:12] VITALS: TEMP 98.5; O2SAT 100
== END ==
LOC: ER 18:41
DX: M54.50 Low back pain, unspecified (principal); M25.561 Pain in right knee
CPT/HCPCS: 72220

== ENCOUNTER 2025-01-05 08:14 | Emergency (ER) | payer SELFPAY ==
--- OUTSIDE RECORDS SUMMARY | 2025-01-05 08:18 | XMS REPORT | Continuity of Care Document ---
Author Name Unknown Address [address] [place] [address] Organization [facility] [place] Address 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 Social History Social Habit Start Date Stop Date Quantity Comments Source Sexual orientation U [facility] Sex Assigned At 1975 00:00:00 1975 00:[birth year]:00 [facility] Smoking Status Start Date Stop Date Source Tobacco smoking consumption unknown [facility] Medications Ordered Medication Name Filled Medication Name Start Date Stop Date Current Medication? Ordering Clinician Indication Dosage Frequency Signature (SIG) Comments Components Source naproxen 500 mg tablet 2023-10 00:00: 00 Yes 1mg Wojciech Anju Keshawn gabapentin 100 mg capsule 01-15 00:00: 00 02-15 04:59 :00 No [id number] 100mg Take 1 capsule by mouth in the morning and 1 capsule at noon and 1 capsule in the evening. Do all this for [address] [facility] Vital Signs Vital Name Observation Time Observation Value Comments S serge Systolic blood pressure 2024-01-16 21:35:00 158 mm[Hg] [facility] Diastolic blood pressure 2024-01-16 21:35:00 79 mm[Hg] [place] [facility] Heart rate 2024-01-16 21:35:00 106 /min [facility] Body temperature 2024-01-16 21:35:00 36.5 Rosina [facility] Respiratory rate 2024-01-16 21:35:00 16 /min [facility] Body height 2024-01-16 21:35:00 162.6 cm [facility] Body weight 2024-01-16 21:35:00 99.791 kg [facility] BMI 2024-01-16 21:35:00 37.76 kg/m2 [facility] Oxygen saturation in Arterial blood by Pulse oximetry 2024-01-16 21:35:00 100 /min [facility] Weight Measured 2024-07-28 14:49:00 217.60 pounds Wojciech Liao Height Measured 2024-07-28 14:49:00 63.00 inches Wojciech Liao Body Temperature 2024-07-28 14:49:00 97.90 degrees Wojciech Liao Heart Rate 2024-07-28 14:49:00 85.00 /min Antonina Liao Respiratory Rate 2024-07-28 14:49:00 18.00 /min Wojciech Liao BP Systolic 2024-07-28 14:49:00 153 mm[Hg] Step hen Anju Liao BP Diastolic 2024-07-28 14:49:00 83 mm[Hg] Shayan phen Anju Liao Procedures Procedure Date / Time Performed Performing Clinicia n Source POCT GLUCOSE(AGE >30DAYS) 2024-01-16 21:50:00 Trena Ascencio [facility] POCT GLUCOSE (AUTOMATED) 2024-01-16 21:48:00 Trena Ascencio [facility] Encounters Start Date/Time End Date/Time Encounter Type Admission Type Attending Clinicians Care Facility Care Department Encounter ID Source 2024-07-28 14:42:10 2024-07-28 14:42:10 Outpatient [facility] [id number] [id number] Wojciech Rene Keshawn 2024-07-28 00:00:00 2024-07-28 00:00:00 Outpatient Visit SFA [id number] Wojciech Liao 2024-01-16 16:37:00 2024-01-16 17:06:00 Emergency X TRENA ASCENCIO [facility] ERT [id number] [facility] 2024-01-16 16:37:00 2024-01-16 17:06:00 Emergency Trena Ascencio [facility] [id number] [facility] Results Test Description Test Time Test Comments Results Result Co mments Source [facility] >30DAYS[facility]2024-01-16 21:50:00* Test Item Value Reference Range Interpretation Comme nts POCT Glu (age>30days) (test code = 3342) 102 mg/dL 70-110 Lab Interpretation (test cod e = 10767-0) Normal [facility] Notes Date/Time Note Provider Source Wojciech Liao Counts Include [facility]2024-03-28 17:05:29 Pt discharged with diagnosis of pain of right lower extremity. Printed and verbal instructions reviewed with and given to patient. Prescriptions given x 1. Pt verbalized understanding of teaching, medication, and recommended follow-up. Denies questions or concerns at this time. Pt ambulatory at discharge. Appears in no apparent distress. No ataxia noted. Accompanied by family member. [facility]2024-03-28 16:34:13 Pt c/o "burning" pain that starts from right foot and radiates up to right knee x1 month. Pt took Tylenol x4 ~1100 this morning. Denies known injury/trauma. [facility]2024-03-28 16:31:00 [facility] Emergency Department Note Patient Name: Angela Torres Date of : 1975 48 year old female [address] Primary Care Physician: No primary care provider on file. Patient Escorted by: Family [5] Mode of Arrival: Personal means [1] EMS Treatment Prior to ED Arrival: BOILER CONTROL TECHNICIAN treatment: Analgesic BOILER CONTROL TECHNICIAN treatment comments: Tylenol at 1100 Travel and Exposure Screening: Symptoms Does patient have any of these symptoms?: (not recorded) Exposure Screening Has patient had contact with someone with a communicable disease in the last month?: (not recorded) Diseases exposed to:: (not recorded) Is Patient ?: (not recorded) Exposure Date: (not recorded) Chief Complaint: Chief Complaint Patient presents with Leg Pain Right History of Present Illness: The patient presents from home for evaluation for pain to the right side of her lower leg that she describes as a burning sensation for the past 1 month. She denies any injury or trauma. No fevers or chills. No leg swelling. No history of diabetes. She has tried a variety of vzel-vhy-vqzklxx medication as well as creams and reports nothing is helping. No recent trips or travel. 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 Here for evaluation. Past Medical History/Immunizations: History reviewed. No pertinent past medical history. Tetanus received in last 5 years: Unknown Allergies: No Known Allergies Past Social History: Substance & Sexual Activity No substance use or sexual activity history on file. Past Surgical History: History reviewed. No pertinent surgical history. Review of Systems: Review of Systems Constitutional: Negative for chills and fever. Respiratory: Negative for cough and shortness of breath. Cardiovascular: Negative for chest pain. Gastrointestinal: Negative for abdominal pain and vomiting. Genitourinary: Negative for dysuria. Musculoskeletal: Negative for arthralgias, neck pain and neck stiffness. Skin: Negative for wound. Neurological: Negative for dizziness. Psychiatric/Behavioral: Negative for agitation. Endocrine: Negative for goiter. Physical Exam: ED Triage Vitals [01/16/24 1635] Weight 99.8 kg (220 lb) Actual or estimated Estimated by patient/family report Height 1.626 m (5' 4") BP (!) 158/79 Pulse 106 Resp 16 Temp 36.5 ?C (97.7 ?F) Temp source Oral SpO2 100 % Measured on Room air Physical Exam Vitals and nursing note reviewed. Constitutional: Appearance: Normal appearance. She is obese. HENT: Head: Normocephalic and atraumatic. Cardiovascular: Rate and Rhythm: Normal rate and regular rhythm. Pulses: Normal pulses. Pulmonary: Effort: Pulmonary effort is normal. No respiratory distress. Abdominal: General: There is no distension. Palpations: Abdomen is soft. There is no mass. Tenderness: There is no abdominal tenderness. There is no guarding. Musculoskeletal: General: Normal range of motion. Cervical back: Normal range of motion and neck supple. Comments: FROM right ankle and knee. +2 dp right side. Skin: General: Skin is warm and dry. Comments: No erythema, warmth or tenderness to right leg Calves are equal sizes b/l Neurological: General: No focal deficit present. Mental Status: She is alert and oriented to person, place, and time. Radiology: No orders to display Lab Results: Lab Results POCT GLUCOSE(AGE >30DAYS) - Normal Result Value Ref Range POCT Glu (age>30days) 102 70 - 110 mg/dL POCT GLUCOSE (AUTOMATED) - Normal POCT GLU 102 70 - 110 mg/dL EKG: If EKG completed, see Procedure Note. Orders and Treatments: Orders Placed This Encounter Procedures POCT GLUCOSE(AGE >30DAYS) POCT GLUCOSE (AUTOMATED) Orders Placed This Encounter Medications gabapentin 100 mg capsule First Provider Eval: ED Events Date/Time Event User Comments 01/16/24 1632 Medical Screening Begins TRENA ASCENCIO DO -- 01/16/24 1632 First Provider Evaluation TRENA ASCENCIO DO -- ED COURSE Diagnosis/Impression as of 01/16/24 1654 Pain of right lower extremity Procedures: Procedures MDM: Medical Decision Making The patient presents from home for evaluation for burning sensation to the inside of her right lower leg that is been present for the past 1 month. She denies any injury or trauma. No fevers or chills. No history of diabetes. She has tried a variety of iccp-vrb-lbimitd medications as well as creams reports nothing is helping. Vital signs are stable in the ER. The patient is obese. She has full range of motion of her bilateral knees and ankles. +2 dorsalis pedis right side. There is no erythema, warmth, swelling or tenderness noted to her right leg. No concern for cellulitis or fracture. She may have neuropathy. Her blood glucose here in the ER is 102. Recommend she start a vitamin B complex vitamin daily as well as gabapentin. She remained stable here in the ER and is okay for discharge home with PCP follow-up. Problems Addressed: Pain of right lower extremity: acute illness or injury Amount and/or Complexity of Data Reviewed Labs: ordered. Decision-making details documented in ED Course. Risk Prescription drug management. Flowsheet Documentation: Scoring Tools: No data recorded Disposition/Condition: ED Disposition ED Disposition Disch - Home Condition Stable Comment -- Discharge Medications: Patient's Medications START taking these medications GABAPENTIN 100 MG CAPSULE Take 1 capsule by mouth in the morning and 1 capsule at noon and 1 capsule in the evening. Do all this for 30 days. CONTINUE taking these medications which have NOT CHANGED No medications on file START taking Modified Medications as Prescribed No medications on file STOP taking these medications No medications on file Follow-up: Electronically signed by: Trena Ascencio DO 01/16/24 1654 [facility]
[2025-01-05 09:51] LABS: Absolute Eosinophils 0.1 K/uL (0-0.5); Absolute Lymphocytes (CBC) 1.4 K/uL (0.7-4.9); Absolute Monocytes 0.4 K/uL (0.1-1.3); Absolute Neutrophil 3.6 K/uL (1.8-8.0); Basophils % 0.8 % (0-1.3); Eosinophils % 1.4 % (0-4.4); Lymphocytes % 26.4 % (15.3-44.8); MCH 30.3 pg (27.0-35.0); MCV 86.7 fL (80-100); MPV 8.1 fL (7.6-11.3); Monocytes % 6.5 % (3.3-12.3); Neutrophils % 64.9 % (41.7-73.7); Nucleated Red Blood Cells % 0.1 % (0-0); Platelets 283 thou/uL (152-406); RBC Red Blood Cell Count 4.61 M/uL (3.86-4.86); Red Cell Distribution Width 13.4 % (12.1-15.2)
[2025-01-05 10:06] LABS: Anion Gap 10.2 mEq/L (5.0-15.0); BUN Blood Urea Nitrogen 16 mg/dL (7-18); Bicarbonate 28 mEq/L (21-32); Glomerular Filtration Rate 96 ml/min (=/>90); Glucose Level 102 mg/dL (74-106); Potassium 4.2 mEq/L (3.5-5.1); Sodium Level 139 mEq/L (136-145); Troponin High Sensitivity < 3.0 pg/mL (<58.9)
--- NOTE | 2025-01-05 10:23 | RAD REPORT ---
Procedure: Chest Single View HISTORY: Cough COMPARISON: 2023 FINDINGS: The lungs appear clear of acute infiltrate. No significant pleural effusion noted. The heart is normal size. IMPRESSION: No acute abnormality is displayed.
--- NOTE | 2025-01-05 10:24 | RAD REPORT ---
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
--- NOTE | 2025-01-05 10:25 | RAD REPORT ---
EXAM:Ankle Right 3 View CLINICAL HISTORY: Ankle pain FINDINGS: No fracture or dislocation seen. Mild osteoarthritis involves ankle. Prominent calcaneal spurs
--- NOTE | 2025-01-05 11:13 | ER ---
Nurse's Notes [facility] Name: Courtney Torres Age: 49 yrs Sex: Female : 1975 Arrival Date: 01/05/2025 Time: 08:14 Bed IW2 Private MD: Diagnosis: Fall on same level, unspecified;Pain in knee;Pain in ankle and joints of foot;Chest pain, unspecified;Essential (primary) hypertension Presentation: 01/05 09:09 Chief complaint: Pain in left chest wall, right ankle, right knee after fall from standing x 2 days ago. Also c/o dizziness. Coronavirus screen: At this time, the client does not indicate any symptoms associated with coronavirus-19. Ebola Screen: No symptoms or risks identified at this time. Initial Sepsis Screen: Does the patient meet any 2 criteria? No. Patient's initial sepsis screen is negative. Does the patient have a suspected source of infection? No. Patient's initial sepsis screen is negative. Risk Assessment: Do you want to hurt yourself or someone else? Patient reports no desire to harm self or others. Onset of symptoms was January 03, 2025. 09:09 Method Of Arrival: Wheelchair hb 09:09 Acuity: SOFIA 3 hb Historical: - Allergies: 09:11 No Known Allergies; hb - Home Meds: 09:11 None [Active]; hb - PMHx: 09:11 Knee problems; hb - PSHx: 09:11 None; hb Vital Signs: 09:09 BP 182 / 70; Pulse 88; Resp 16; Temp 98.4; Pulse Ox 100% ; Weight 95.25 kg; Height 5 hb ft. 4 in. ; Pain 10/10; 09:09 Body Mass Index 36.05 (95.25 kg, 162.56 cm) hb 09:09 Pain Scale: Adult hb ED Course: 08:17 Patient arrived in ED. cj3 08:19 Brandon Amaya DO is Attending Physician. ms3 09:11 Triage completed. hb 09:36 Basic Metabolic Panel Sent. bc6 09:36 CBC with Diff Sent. bc6 09:36 Troponin HS Sent. bc6 09:36 Initial lab(s) drawn, by me, sent to lab. Inserted saline lock: 20 gauge in left bc6 antecubital area, using aseptic technique. Blood collected. Flushed with 10 mL NS. 09:51 XRAY Chest (1 view) In Process Unspecified. EDMS 09:51 Knee Right 3 View XRAY In Process Unspecified. EDMS 09:52 Ankle Right 3 View XRAY In Process Unspecified. EDMS 11:12 Miah Portillo DO is Referral Physician. ms3 11:41 IV discontinued, intact, bleeding controlled, No redness/swelling at site. Pressure bc6 dressing applied, 20 OUT OF LAC. Administered Medications: No medications were administered Outcome: 11:12 Discharge ordered by MD. ms3 11:59 Patient left the ED. bc6 Signatures: Dispatcher [employer] EDMS Magda Hoyos RN RN Brandon Fernandes DO DO ms3 Lori Hall bc6 Karlie Low cj3 Corrections: (The following items were deleted from the chart) 10:22 09:09 Chief complaint: Pain in left chest wall, left ankle, left knee after fall from standing x 2 days ago. Also c/o dizziness.
--- NOTE | 2025-01-05 11:13 | EDPHYS ---
Physician Documentation [facility] Name: Courtney Torres Age: 49 yrs Sex: Female : 1975 Arrival Date: 01/05/2025 Time: 08:14 Bed IW2 Private MD: ED Physician Brandon Amaya HPI: 01/05 11:12 This 49 yrs old Female presents to ER via Wheelchair with complaints of Pain ms3 All Over. 11:12 49-year-old female with no past medical history presents to the emergency department ms3 for left side pain, back pain, paresthesias, right ankle pain, right knee pain. Patient states her ankle and knee pain began 2 days ago after falling while at work. Patient states her discomfort is a 10/10. Patient endorses dizziness. She denies nausea or vomiting. Historical: - Allergies: 09:11 No Known Allergies; hb - Home Meds: 09:11 None [Active]; hb - PMHx: 09:11 Knee problems; hb - PSHx: 09:11 None; hb ROS: 11:12 Constitutional: Negative for fever, and chills. Respiratory: Negative for shortness of ms3 breath, cough, wheezing, and pleuritic chest pain, 11:12 Abdomen/GI: Negative for abdominal pain, nausea, vomiting, diarrhea, and constipation, 11:12 Cardiovascular: Positive for Left-sided rib pain, 11:12 Neuro: Positive for dizziness, Exam: 11:12 Constitutional: This is a well developed, well nourished patient who is awake, alert, ms3 and in no acute distress. 11:12 Respiratory: Lungs have equal breath sounds bilaterally, clear to auscultation and percussion. No rales, rhonchi or wheezes noted. No increased work of breathing, no retractions or nasal flaring. Abdomen/GI: Soft, non-tender, with normal bowel sounds. No distension or tympany. No guarding or rebound. No evidence of tenderness throughout. Skin: Warm, dry with normal turgor. Normal color with no rashes, no lesions, and no evidence of cellulitis. 11:12 Chest/axilla: Inspection: normal, Palpation: tenderness, that is moderate, of the left lateral anterior chest, Vital Signs: 09:09 BP 182 / 70; Pulse 88; Resp 16; Temp 98.4; Pulse Ox 100% ; Weight 95.25 kg; Height 5 hb ft. 4 in. ; Pain 10/10; 09:09 Body Mass Index 36.05 (95.25 kg, 162.56 cm) hb 09:09 Pain Scale: Adult hb MDM: 09:15 Medical Screening Exam initiated ms3 11:12 Data reviewed: vital signs, nurses notes, lab test result(s), radiologic studies, and ms3 as a result, I will discharge patient. Independent interpretation of the following test(s) in the Emergency Department EKG: See my EKG interpretation above. Counseling: I had a detailed discussion with the patient and/or guardian regarding the historical points, exam findings, and any diagnostic results supporting the discharge/admit diagnosis, lab results, the need for outpatient follow up, to return to the emergency department if symptoms worsen or persist or if there are any questions or concerns that arise at home. Special discussion: Based on the patient's history, exam, and Dx evaluation, there is no indication for emergent intervention or inpatient Tx. It is understood by the patient/guardian that if the Sx's persist or worsen they need to return immediately for re-evaluation. Special discussion:. ED course: Patient declined EKG. Discussed labs with patient. Chest x-ray negative acute. Patient to follow-up with primary care physician in 2 to 3 days. Patient understands and agrees with plan. All questions were answered. Return precautions discussed include worsening symptoms, or any other concerns. 01/05 09:13 Order name: Basic Metabolic Panel; Complete Time: 11:00 3 01/05 09:13 Order name: CBC with Diff; Complete Time: 11:00 3 01/05 09:13 Order name: Troponin HS; Complete Time: 11:00 ms3 01/05 09:13 Order name: XRAY Chest (1 view); Complete Time: 11:00 ms3 01/05 09:13 Order name: Knee Right 3 View XRAY; Complete Time: 11:00 ms3 01/05 09:13 Order name: Ankle Right 3 View XRAY; Complete Time: 11:00 ms3 01/05 09:13 Order name: Cardiac monitoring 3 01/05 09:13 Order name: EKG - Nurse/Tech 3 01/05 09:13 Order name: IV Saline Lock; Complete Time: 09:36 ms3 01/05 09:13 Order name: Labs collected and sent; Complete Time: 09:36 ms3 01/05 09:13 Order name: O2 Per Protocol ms3 01/05 09:13 Order name: O2 Sat Monitoring ms3 Administered Medications: No medications were administered Disposition Summary: 01/05/25 11:12 Discharge Ordered Notes: Location: Home ms3 Condition: Stable ms3 Diagnosis - Fall on same level, unspecified ms3 - Pain in knee ms3 - Pain in ankle and joints of foot ms3 - Chest pain, unspecified ms3 - Essential (primary) hypertension ms3 Followup: ms3 - With: Miah Portillo DO - When: 2 - 3 days - Reason: Re-evaluation by your physician Discharge Instructions: - Discharge Summary Sheet ms3 - Nonspecific Chest Pain, Adult ms3 - Hypertension, Adult ms3 - Musculoskeletal Pain ms3 - DASH Eating Plan ms3 Forms: - Work release form hb - Medication Reconciliation Form ms3 - Antibiotic Education ms3 - Prescription Opioid Use ms3 - Patient Portal Instructions ms3 - Leadership Thank You Letter ms3 Signatures: Dispatcher [employer] EDMS Magda Hoyos, RN RN Brandon Fernandes DO DO ms3 Corrections: (The following items were deleted from the chart) 09:14 09:14 Knee Right 3 View+RAD.RAD.BRZ ordered. EDMS EDMS 09:14 09:14 Ankle Right 3 View+RAD.RAD.BRZ ordered. EDMS EDMS 18:25 18:22 This 49 yrs old Female presents to ER via Wheelchair with complaints of ms3 Pain All Over. ms3 18:32 11:12 HEART Score: History: Slightly Suspicious (0), ECG: ms3 ms3
[2025-01-05 13:58] VITALS: BP 182/70; TEMP 98.4; O2SAT 100
== END 2025-01-05 11:59 | disposition home or self-care (01) ==
LOC: ER 08:14
DX: R07.9 Chest pain, unspecified (principal); M25.562 Pain in left knee; M25.572 Pain in left ankle and joints of left foot; I10 Essential (primary) hypertension; W18.30XA Fall on same level, unspecified, initial encounter
CPT/HCPCS: 36415; 71045; 80048; 84484; 85025; 99283